=== PATIENT | male | born 1945 | race Caucasian/White ===

== ENCOUNTER → 2018-09-07 | Outpatient (CLI) | payer MEDICARE ==
[~2018-09-07] MED LIST: AMLO-150 PO; AREDS PO; BISO5TAB2 PO; CHOL500045 PO; DOCU-131 PO; DOXA4TAB3 PO; FINA5TAB PO; LISI-170 PO; MAGN71.5 PO; OMEP20TA62 PO; POTA10CA PO; [UNRECOGNIZED DRUG - OTHER] PO; [UNRECOGNIZED DRUG - OTHER] PO
[2018-09-07 08:59] LABS: BASOPHILS # (AUTO) 0.02 x10^3/uL (0-0.1); BASOPHILS % (AUTO) 0 % (0-1); EOSINOPHILS # (AUTO) 0.02 x10^3/uL (0-0.4); EOSINOPHILS % (AUTO) 0 % (1-7); LYMPHOCYTES # (AUTO) 1.21 x10^3/uL (1-3.4); LYMPHOCYTES % (AUTO) 21 % (22-44); MD NO; MEAN CORPUSCULAR HEMOGLOBIN 31.6 pg (27.5-34.5); MEAN CORPUSCULAR HGB CONC 33.7 g/dL (33.2-36.2); MEAN CORPUSCULAR VOLUME 93.8 fL (81-97); MEAN PLATELET VOLUME 7.1 fL (7.4-10.4); MONOCYTES # (AUTO) 0.36 x10^3/uL (0.2-0.8); MONOCYTES % (AUTO) 6 % (2-9); NEUTROPHILS # (AUTO) 4.22 x10^3/uL (1.8-6.8); NEUTROPHILS % (AUTO) 73 % (42-75); PLATELET COUNT 233 x10^3/uL (130-400); RED BLOOD COUNT 5.06 x10^6/uL (4.38-5.82); RED CELL DISTRIBUTION WIDTH 14.6 % (9.4-14.8)
[2018-09-07 09:00] LABS: MICROSCOPIC NOT IND
[2018-09-07 09:03] LABS: INTERNATIONAL NORMALIZED RATIO 1.01 (0.93-1.1); PROTHROMBIN TIME 10.7 Seconds (9.6-11.5)
[2018-09-07 09:05] LABS: ALANINE AMINOTRANSFERASE 27 U/L (12-78); ALBUMIN 3.7 g/dL (3.4-5.0); ANION GAP 6 mmol/L (5-15); CALCIUM 9.3 mg/dL (8.5-10.1); CHLORIDE 111 mmol/L (98-107); CREATININE 1.05 mg/dL (0.7-1.3)
[2018-09-07 09:07] LABS: ALKALINE PHOSPHATASE 102 U/L (45-117); BILIRUBIN,TOTAL 0.6 mg/dL (0.2-1.0); TOTAL PROTEIN 7.5 g/dL (6.4-8.2)
== END | disposition home or self-care (01) ==
LOC: STAR 07:48
PROVIDERS: ATTEND Urology
DX: Z01.818 Encounter for other preprocedural examination (principal); N20.0 Calculus of kidney
CPT/HCPCS: 36415; 71046; 80053; 81003; 85025; 85610; 85730; 87086; 93005

== ENCOUNTER 2018-09-16 10:42 | Day surgery (SDC) | payer MEDICARE ==
[~2018-09-16] VITALS: Ht 182.9 cm; Wt 109.8 kg
[2018-09-16] MEDS ORDERED: SCOPOLAMINE PATCH, 1.5MG PATCH.TD72 TD ONE (11:30)
[2018-09-16] MEDS ORDERED: FENTANYL PF 250 MCG/5ML ONE (12:16)
[2018-09-16] MEDS ORDERED: GLYCOPYRROLATE 0.2MG/1ML, 5ML ONE (12:53)
[2018-09-16] MEDS ORDERED: ROCURONIUM 10MG/ML,5ML ONE (12:53)
[2018-09-16] MEDS ORDERED: CEFAZOLIN 1,000 MG ONE (12:53)
[2018-09-16] MEDS ORDERED: NEOSTIGMINE 1 MG/ML, 10ML ONE (12:53)
[2018-09-16] MEDS ORDERED: PROPOFOL 10 MG/ML, 20ML ONE (12:53)
[2018-09-16] MEDS ORDERED: PROMETHAZINE 25 MG SUPP PR PRN (13:30)
[2018-09-16] MEDS ORDERED: PROMETHAZINE 25 MG/ML, 1ML IV PRN (13:30)
[2018-09-16] MEDS ORDERED: ONDANSETRON 2MG/ML, 2ML ONE (13:30)
[2018-09-16] MEDS ORDERED: MORPHINE SULFATE 4 MG/ML, 1ML IVPush PRN (13:30)
[2018-09-16] MEDS ORDERED: hydrALAzine 20 MG/ML, 1ML IV PRN (13:30)
[2018-09-16] MEDS ORDERED: PROMETHAZINE 25 MG/ML, 1ML IM PRN ×2 (13:30)
[2018-09-16] MEDS ORDERED: LABETALOL 5MG/ML, 20ML IV PRN (13:30)
[2018-09-16] MEDS ORDERED: ACETAMINOPHEN 325 MG TABLET PO PRN (13:30)
[2018-09-16] MEDS ORDERED: HALOPERIDOL 5 MG/ML IV PRN (13:30)
[2018-09-16] MEDS ORDERED: HYDROmorphone 2 MG/ML, 1ML IVPush PRN (13:30)
[2018-09-16] MEDS ORDERED: ONDANSETRON ODT 8 MG PO PRN (13:30)
[2018-09-16] MEDS ORDERED: DEXAMETHASONE 4 MG/ML, 5ML ONE (13:30)
[2018-09-16] MEDS ORDERED: FENTANYL PF 100 MCG/2ML IV PRN (13:30)
[2018-09-16] MEDS ORDERED: MEPERIDINE/PF 25MG/0.5ML IVPush PRN (13:30)
[2018-09-16] MEDS ORDERED: ONDANSETRON 2MG/ML, 2ML IV PRN (13:30)
[2018-09-16] MEDS ORDERED: PROMETHAZINE 12.5 MG SUPP PR PRN (13:30)
[2018-09-16] MEDS ORDERED: PHENYLEPHRINE 10 MG/ML ONE (13:34)
== END 2018-09-16 18:40 | disposition home or self-care (01) ==
LOC: OUT 10:42
PROVIDERS: ATTEND Urology
DX: N20.0 Calculus of kidney (principal); N40.0 Benign prostatic hyperplasia without lower urinary tract symptoms; I10 Essential (primary) hypertension; K21.9 Gastro-esophageal reflux disease without esophagitis; Z87.891 Personal history of nicotine dependence; Z88.5 Allergy status to narcotic agent; Z88.8 Allergy status to other drugs, medicaments and biological substances
CPT/HCPCS: 50590; J0690; J1100; J2370; J2405; J2704; J2710; J3010; J3490

== ENCOUNTER → 2018-10-05 | Outpatient (CLI) | payer MEDICARE | END | disposition home or self-care (01) | LOC: RAD 11:15 | PROVIDERS: ATTEND Urology | DX: N20.0 Calculus of kidney (principal) | CPT/HCPCS: 74018 ==